=== PATIENT | female | born 2000 | race Caucasian/White ===

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

== ENCOUNTER 2018-10-09 11:29 | Inpatient (IN) | payer OTHER ==
[2018-10-09 12:17] LABS: ABS Basophils 0.1 10^3/ul (0-0.2); ABS Eosinophils 0.2 10^3/ul (0-0.6); ABS Lymphocytes 2.4 10^3/ul (1.0-4.8); ABS Monocytes 0.5 10^3/ul (0-0.8); ABS Neutrophils 3.5 10^3/ul (1.5-7.7); Eosinophil % 2.8 %; Hematocrit 39 % (35-47); Hemoglobin 12.9 g/dL (12.0-16.0); Lymphocyte % 36.1 %; Mean Corpuscular HGB Conc 33 g/dL (31-36); Mean Corpuscular Hemoglobin 29 pg (27-31); Mean Corpuscular Volume 87 fL (80-97); Mean Platelet Volume 6.9 fL (7.4-10.4); Nucleated Red Blood Cells % 0.1; Platelet Count 324 10^3/uL (150-450); Red Cell Distribution Width 13 % (10.5-15); White Blood Count 6.7 10^3/uL (3.5-10.8)
[2018-10-09 12:48] LABS: ALT 26 U/L (7-52); AST 24 U/L (13-39); Albumin 4.4 g/dL (3.2-5.2); Alkaline Phosphatase 78 U/L (34-104); Anion Gap 6 mmol/L (2-11); BUN/Creatinine Ratio 15.6 (8-20); Blood Urea Nitrogen 12 mg/dL (6-24); CO2 Carbon Dioxide 29 mmol/L (22-32); Calcium 9.6 mg/dL (8.6-10.3); Chloride 105 mmol/L (101-111); EGFR African American 115.6 (>60); EGFR Non-African American 95.6 (>60); Glucose 97 mg/dL (70-100); Potassium 4.1 mmol/L (3.5-5.0); Sodium 140 mmol/L (135-145)
[2018-10-09 13:03] LABS: Urine Appearance Clear; Urine Bacteria 1+ (Absent); Urine Bilirubin Negative (Negative); Urine Blood 1+ (Negative); Urine Color Yellow; Urine Glucose Negative (Negative); Urine Ketones Negative (Negative); Urine Nitrite Negative (Negative); Urine Protein Negative (Negative); Urine Red Blood Cell Trace(0-2/hpf) (Absent); Urine Specific Gravity 1.008 (1.010-1.030); Urine Squamous Epithelial Cell Present (Absent); Urine Urobilinogen Negative (Negative); Urine White Blood Cell Trace(0-5/hpf) (Absent)
[2018-10-09 13:21] LABS: Acetaminophen < 15 mcg/mL; Alcohol < 10 mg/dL (<10); Salicylate < 2.50 mg/dL (<30)
[2018-10-09 13:34] LABS: TSH (Thyroid Stimulating Horm) 1.67 mcIU/mL (0.34-5.60)
[2018-10-09 13:38] LABS: Urine Benzodiazepine Screen None Detected (None Detect); Urine Opiates Screen None Detected (None Detect)
[2018-10-09 13:56] LABS: Albumin/Globulin Ratio 1.5 (1-3); Total Protein 7.4 g/dL (6.4-8.9)
--- NOTE | 2018-10-09 14:25 | ED ---
Psychiatric Complaint - HPI Summary HPI Summary: Patient is a 18-year-old female presenting to the ED from her doctor's office. She states she tried to commit suicide, stating "but not really" on Friday evening. She states she took a few more doses of her medications than she typically does. She has no plans to commit suicide at this time. She denies any SI or HI. She states she is unsure why she is here. She denies any complaints. States she is otherwise at her baseline. Denies any recent worsening depression or anxiety. Denies any physical symptoms. - History Of Current Complaint Chief Complaint: EDMentalHealth Time Seen by Provider: 10/09/18 11:34 Hx Obtained From: Patient ?: No Onset/Duration: Sudden Onset Timing: Constant Severity Initially: Mild Severity Currently: Mild Character: Depressed Aggravating Factor(s): Nothing Alleviating Factor(s): Nothing Associated Signs And Symptoms: Positive: Negative Has Suicidal: Reports: Thoughts, Demonstrates Gesture - ingesting more pills than usual per patient - Risk Factor(s) Completed Suicide Risk Factors: Negative - Allergies/Home Medications Allergies/Adverse Reactions: Allergies Allergy/AdvReac Type Severity Reaction Status Date / Time No Known Allergies Allergy Verified 10/09/18 19:42 Home Medications: Home Medications Levonorgestrel (Iud) [Mirena IUD] 20 mcg IU ONCE 10/09/18 [History Confirmed 08/25] hydrOXYzine HCl [Hydroxyzine HCl] 10 mg PO BID PRN 10/09/18 [History Confirmed 10/09/18] PMH/Surg Hx/FS Hx/Imm Hx Previously Healthy: Yes Psychiatric History: Reports: Hx Eating Disorder - Anorexia - Immunization History Hx Pertussis Vaccination: No Immunizations Up to Date: Yes Infectious Disease History: No Infectious Disease History: Denies: Traveled Outside the [place] in Last 30 Days - Social History Occupation: Employed Full-time Lives: With Family Alcohol Use: Occasionally Hx Substance Use: Yes Substance Use Type: Reports: Marijuana Smoking Status (MU): Never Smoked Tobacco Review of Systems Negative: Fever, Chills, Fatigue, Skin Diaphoresis Negative: Palpitations, Chest Pain Negative: Shortness Of Breath, Cough Genitourinary: Negative Positive: no symptoms reported, see HPI Negative: Bruising Positive: Depressed All Other Systems Reviewed And Are Negative: Yes Physical Exam Triage Information Reviewed: Yes Vital Signs On Initial Exam: Initial Vitals Temp Pulse Resp BP Pulse Ox 98.7 F 81 16 121/71 98 10/09/18 11:46 10/09/18 11:46 10/09/18 11:46 10/09/18 11:46 10/09/18 11:46 Vital Signs Reviewed: Yes Appearance: Positive: Well-Appearing, Well-Nourished Skin: Positive: Warm, Skin Color Reflects Adequate Perfusion Head/Face: Positive: Normal Head/Face Inspection Eyes: Positive: EOMI, Conjunctiva Clear Neck: Positive: No Lymphadenopathy Respiratory/Lung Sounds: Positive: Clear to Auscultation, Breath Sounds Present Cardiovascular: Positive: RRR, Pulses are Symmetrical in both Upper and Lower Extremities Musculoskeletal: Positive: Normal, Strength/ROM Intact Neurological: Positive: Speech Normal Psychiatric: Positive: Normal, Affect/Mood Appropriate AVPU Assessment: Alert Diagnostics - Vital Signs Vital Signs Temp Pulse Resp BP Pulse Ox 10/09/18 11:46 98.7 F 81 16 121/71 98 - Laboratory Lab Results: Lab Results 10/09/18 10/09/18 10/09/18 Range/Units 12:00 12:00 12:08 WBC 6.7 (3.5-10.8) 10^3/uL RBC 4.50 (3.70-4.87) 10^6 /uL Hgb 12.9 (12.0-16.0) g/dL Hct 39 (35-47) % MCV 87 (80-97) fL MCH 29 (27-31) pg MCHC 33 (31-36) g/dL RDW 13 (10.5-15) % Plt Count 324 (150-450) 10^3/uL MPV 6.9 L (7.4-10.4) fL Neut % (Auto) 52.6 % Lymph % (Auto) 36.1 % [place] % (Auto) 7.7 % Eos % (Auto) 2.8 % Baso % (Auto) 0.8 % Absolute Neuts (auto) 3.5 (1.5-7.7) 10^3/ul Absolute Lymphs (auto) 2.4 (1.0-4.8) 10^3/ul Absolute Monos (auto) 0.5 (0-0.8) 10^3/ul Absolute Eos (auto) 0.2 (0-0.6) 10^3/ul Absolute Basos (auto) 0.1 (0-0.2) 10^3/ul Absolute Nucleated RBC 0.0 10^3/ul Nucleated RBC % 0.1 Sodium (135-145) mmol/L Potassium (3.5-5.0) mmol/L Chloride (101-111) mmol/L Carbon Dioxide (22-32) mmol/L Anion Gap (2-11) mmol/L BUN (6-24) mg/dL Creatinine (0.51-0.95) mg/dL Est GFR ( Amer) (>60) Est GFR (Non-Af Amer) (>60) BUN/Creatinine Ratio (8-20) Glucose (70-100) mg/dL Calcium (8.6-10.3) mg/dL Total Bilirubin (0.2-1.0) mg/dL AST (13-39) U/L ALT (7-52) U/L Alkaline Phosphatase (34-104) U/L Total Protein (6.4-8.9) g/dL Albumin (3.2-5.2) g/dL Globulin (2-4) g/dL Albumin/Globulin Ratio (1-3) TSH (0.34-5.60) mcIU/mL Urine Color Yellow Urine Appearance Clear Urine pH 6.0 (5-9) Ur Specific [place] 1.008 L (1.010-1.030) Urine Protein Negative (Negative) Urine Ketones Negative (Negative) Urine Blood 1+ A (Negative) Urine Nitrate Negative (Negative) Urine Bilirubin Negative (Negative) Urine Urobilinogen Negative (Negative) Ur Leukocyte Esterase Negative (Negative) Urine WBC (Auto) Trace(0-5/hpf) (Absent) Urine RBC (Auto) Trace(0-2/hpf) (Absent) Ur Squamous Epith Cells Present A (Absent) Urine Bacteria 1+ A (Absent) Urine Glucose Negative (Negative) Salicylates (<30) mg/dL Urine Opiates Screen None detected (None Detect) Acetaminophen mcg/mL Ur Barbiturates Screen None detected (None Detect) Ur Phencyclidine Scrn None detected (None Detect) Ur Amphetamines Screen None detected (None Detect) U Benzodiazepines Scrn None detected (None Detect) Urine Cocaine Screen None detected (None Detect) U Cannabinoids Screen None detected (None Detect) Serum Alcohol (<10) mg/dL 10/09/18 Range/Units 12:08 WBC (3.5-10.8) 10^3/uL RBC (3.70-4.87) 10^6 /uL Hgb (12.0-16.0) g/dL Hct (35-47) % MCV (80-97) fL MCH (27-31) pg MCHC (31-36) g/dL RDW (10.5-15) % Plt Count (150-450) 10^3/uL MPV (7.4-10.4) fL Neut % (Auto) % Lymph % (Auto) % [place] % (Auto) % Eos % (Auto) % Baso % (Auto) % Absolute Neuts (auto) (1.5-7.7) 10^3/ul Absolute Lymphs (auto) (1.0-4.8) 10^3/ul Absolute Monos (auto) (0-0.8) 10^3/ul Absolute Eos (auto) (0-0.6) 10^3/ul Absolute Basos (auto) (0-0.2) 10^3/ul Absolute Nucleated RBC 10^3/ul Nucleated RBC % Sodium 140 (135-145) mmol/L Potassium 4.1 (3.5-5.0) mmol/L Chloride 105 (101-111) mmol/L Carbon Dioxide 29 (22-32) mmol/L Anion Gap 6 (2-11) mmol/L BUN 12 (6-24) mg/dL Creatinine 0.77 (0.51-0.95) mg/dL Est GFR ( Amer) 115.6 (>60) Est GFR (Non-Af Amer) 95.6 (>60) BUN/Creatinine Ratio 15.6 (8-20) Glucose 97 (70-100) mg/dL Calcium 9.6 (8.6-10.3) mg/dL Total Bilirubin 0.40 (0.2-1.0) mg/dL AST 24 (13-39) U/L ALT 26 (7-52) U/L Alkaline Phosphatase 78 (34-104) U/L Total Protein 7.4 (6.4-8.9) g/dL Albumin 4.4 (3.2-5.2) g/dL Globulin 3.0 (2-4) g/dL Albumin/Globulin Ratio 1.5 (1-3) TSH 1.67 (0.34-5.60) mcIU/mL Urine Color Urine Appearance Urine pH (5-9) Ur Specific [place] (1.010-1.030) Urine Protein (Negative) Urine Ketones (Negative) Urine Blood (Negative) Urine Nitrate (Negative) Urine Bilirubin (Negative) Urine Urobilinogen (Negative) Ur Leukocyte Esterase (Negative) Urine WBC (Auto) (Absent) Urine RBC (Auto) (Absent) Ur Squamous Epith Cells (Absent) Urine Bacteria (Absent) Urine Glucose (Negative) Salicylates < 2.50 (<30) mg/dL Urine Opiates Screen (None Detect) Acetaminophen < 15 mcg/mL Ur Barbiturates Screen (None Detect) Ur Phencyclidine Scrn (None Detect) Ur Amphetamines Screen (None Detect) U Benzodiazepines Scrn (None Detect) Urine Cocaine Screen (None Detect) U Cannabinoids Screen (None Detect) Serum Alcohol < 10 (<10) mg/dL Result Diagrams: 10/09/18 12:08 10/09/18 12:08 Lab Statement: Any lab studies that have been ordered have been reviewed, and results considered in the medical decision making process. Course/Dx - Course Course Of Treatment: During his course of treatment, the patient is evaluated for SI and attempt x a few days ago. Patient is cleared from the ED and denies any physical symptoms. VS stable. Mental health evaluation and patient will be admitted to [facility] for further evaluation of suicidal attempt. - Differential Dx/Clinical Impression Differential Diagnosis/HQI/PQRI: Positive: Suicide Attempt, Suicidal Ideation, Suicidal Gesture Provider Diagnosis: Suicide attempt Discharge - Sign-Out/Discharge Documenting (check all that apply): Patient Departure All imaging exams completed and their final reports reviewed: No Patient Received Moderate/Deep Sedation with Procedure: No - Discharge Plan Condition: Improved Disposition: ADMITTED TO [facility] - Billing Disposition and Condition Condition: IMPROVED Disposition: Admitted to [facility]
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
[2018-10-09] MEDS ORDERED: Al Hydrox/Mg Hydrox/Simet LIQ* 30 ML UDC PO PRN (16:34)
[2018-10-09] MEDS ORDERED: Sertraline* 100 MG TAB PO SCH (21:00)
[2018-10-09] MEDS ORDERED: Sertraline* 50 MG TAB PO SCH (21:00)
[2018-10-10] MEDS ORDERED: Sertraline* 100 MG TAB PO SCH (10:00)
[2018-10-10] MEDS ORDERED: Sertraline* 50 MG TAB PO ONE (15:30)
[2018-10-10] MEDS: Acetaminophen TAB* 325 MG PO PRN (21:34)
[2018-10-11] MEDS: Sertraline* 100 MG TAB PO SCH (09:24)
[2018-10-11] MEDS: Acetaminophen TAB* 325 MG PO PRN ×2 (15:03→20:27)
--- NOTE | 2018-10-11 17:14 | PN ---
Subjective - Subjective Date of Service: 10/10/18 Service Type: 31166 Hosp care 25 min moderate complexity Subjective: Saw Silvana multiple times on 4th and today. She is focused on discharge. Says she is not suicidal any longer. Ambivalent about increase is Zoloft. Reduced in morning and later increased. She thinks increase in dose caused suicidal thoughts and increase in depression. Isolative and guarded but no evidence of hallucinations or sugey delusions. Objective - General Observations Appearance: Well Groomed Stature: Overweight Posture: WNL Eye Contact: Average Behavior/Activity: WNL - Interaction Observations Attitude Towards Examiner: Cooperative Stated Mood: Euthymic Affect: Bright Speech Pattern/Tone: Clear, Appropriate, Normal Volume Thought Process: Coherent Perception: WNL Thought Content: WNL Hallucination Type: None Delusion Type: None - Cognitive Function Orientation: A&O x 4 Level of Consciousness: Awake, Alert, Appropriate Cognition: WNL Estimated Intelligence: Normal Insight: Mostly Blames Others for Problems Judgment Within Normal Limits: No Ability to Make Reasonable Decisions: Serverely Impaired - Medication Compliance Cooperative with Inpatient Medication Regimen: Yes - Group Participation Participates in Group Activities: No Assessment - Assessment Merits Inpatient Hospitalization: For Immediate Safety, For Stabilization, Pending Safe DC Plan Plan - Plan Treatment Plan: Name: KARRI LORENZ Birthdate: 2000 [id number] Continued Medication Management: Continue Outpt Medication Medications: Current Medications Acetaminophen (Tylenol Tab*) 650 mg PO Q4H PRN PRN Reason: for pain; or Temp >101 F Last Admin: 10/11/18 15:03 Dose: 650 mg Al Hydrox/Mg Hydrox/Simethicone (Maalox Plus*) 30 ml PO Q4H PRN PRN Reason: INDIGESTION Sertraline HCl (Zoloft*) 200 mg PO DAILY [facility] Last Admin: 10/11/18 09:24 Dose: 200 mg - Discharge Plan Discharge Plan: Outpatient Follow Up Outpatient Program: Private Clinician(s)
[2018-10-12] MEDS: Acetaminophen TAB* 325 MG PO PRN (04:53)
[2018-10-12 07:02] LABS: HDL Cholesterol 76.6 mg/dL
[2018-10-12] MEDS: Sertraline* 100 MG TAB PO SCH (08:49)
[2018-10-12 09:53] VITALS: BP 129/76
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
== END 2018-10-12 15:52 | disposition home or self-care (01) | DRG 751 ==
LOC: ED 11:29 → BSU 17:47
PROVIDERS: ADMIT Psychiatry & Neurology Psychiatry; ATTEND Psychiatry & Neurology Psychiatry
DX: F33.3 Major depressive disorder, recurrent, severe with psychotic symptoms (principal); F50.00 Anorexia nervosa, unspecified; R45.851 Suicidal ideations; F63.2 Kleptomania; F41.9 Anxiety disorder, unspecified; F63.9 Impulse disorder, unspecified; Z91.410 Personal history of adult physical and sexual abuse; Z72.89 Other problems related to lifestyle; Z68.32 Body mass index [BMI] 32.0-32.9, adult; Z91.5 Personal history of self-harm; Z91.14 Patient's other noncompliance with medication regimen; Z97.5 Presence of (intrauterine) contraceptive device
CPT/HCPCS: 36415; 80053; 80061; 80307; 80320; 80329; 81003; 81015; 83036; 84443; 85025; 87086; 99222; 99232; 99238; 99285; A9270-GY; G0480

== ENCOUNTER 2019-02-21 15:20 | Emergency (ER) | payer BC, OTHER ==
[2019-02-21] MEDS ORDERED: Albuterol/Ipratropium NEB.SOL* Albuterol 2.5 MG/Ipratropium 0.5 MG 3 ML INH ONE (16:33)
--- NOTE | 2019-02-21 16:35 | UC ---
Respiratory Complaint HPI - HPI Summary HPI Summary: Patient is a 18 yo female presenting with cough and wheezing x3 days. Patient notes cough and nasal discharge that began on . By Friday, she said her symptoms were worse and she began wheezing and had difficulty breathing. Patient said today her wheezing worsened further and she used her albuterol inhaler approx. 7 times before coming in today. Patient has also taken over the counter cough and cold medications with little relief of symptoms. Denies headache, vision changes, ear pain, and sore throat. Denies any ill contacts. Denies nausea. Notes post-tussive emesis once yesterday. Denies changes in urination or BMs. Denies fever and chills. Denies environmental allergies. Patient states she was diagnosed years ago with reactive airway disease. - History of Current Complaint Chief Complaint: UCGeneralIllness Stated Complaint: COUGH Time Seen by Provider: 02/21/19 16:31 Hx Obtained From: Patient Hx Last Menstrual Period: has mirena IUD - doesn't get period Onset/Duration: Sudden Onset, Lasting Days Timing: Constant Pain Intensity: 0 Character: Cough: Productive - intermittently Aggravating Factors: Deep Breaths, Recumbent Position Alleviating Factors: Upright Position Associated Signs And Symptoms: Positive: Dyspnea, Wheezing, URI, Nasal Congestion. Negative: Fever, Pleuritic Chest Pain, Hemoptysis, Dizziness - Allergies/Home Medications Allergies/Adverse Reactions: Allergies Allergy/AdvReac Type Severity Reaction Status Date / Time No Known Allergies Allergy Verified 02/21/19 16:29 Home Medications: Home Medications Albuterol HFA INHALER* [Ventolin HFA Inhaler*] 2 puff INH Q4H PRN 02/21/19 [ History Confirmed 02/21/19] Escitalopram * [Lexapro 5 mg (NF)] 5 mg PO DAILY 02/21/19 [History Confirmed ] Venlafaxine HCl [Effexor XR-] 37.5 mg PO DAILY 02/21/19 [History Confirmed 02/21] PMH/Surg Hx/FS Hx/Imm Hx - Surgical History Surgical History: Yes Surgery Procedure, Year, and Place: wisdom teeth - Family History Known Family History: Positive: Unknown - Social History Alcohol Use: Weekly Substance Use Type: Marijuana Smoking Status (MU): Current Some Day Smoker - Immunization History Most Recent Influenza Vaccination: unknown Most Recent Pneumonia Vaccination: none Review of Systems All Other Systems Reviewed And Are Negative: Yes Constitutional: Positive: Fatigue. Negative: Fever, Chills Eyes: Positive: Negative. Negative: Blurred Vision, Diplopia, Drainage, Eye Redness ENT: Positive: Nasal Discharge, Sinus Congestion. Negative: Sore Throat, Ear Ache, Sinus Pain/Tenderness Respiratory: Positive: Shortness Of Breath - intermittently, Cough, Other - notes wheezing Cardiovascular: Positive: Other - notes chest tightness. Negative: Palpitations , Chest Pain Genitourinary: Positive: Negative Motor: Positive: Negative Neurovascular: Positive: Negative Musculoskeletal: Positive: Negative. Negative: Myalgia Neurological: Negative: Headache Psychological: Positive: Negative Physical Exam Triage Information Reviewed: Yes Appearance: No Pain Distress, Well-Nourished Vital Signs: Initial Vital Signs Temp 97.9 F 02/21/19 16:26 Pulse 110 02/21/19 16:26 Resp 24 02/21/19 16:26 BP 132/77 02/21/19 16:26 Pulse Ox 98 02/21/19 16:26 Vital Signs Reviewed: Yes Eyes: Positive: Conjunctiva Clear. Negative: Discharge ENT: Positive: Hearing grossly normal, Pharyngeal erythema, Nasal drainage, TMs normal, Uvula midline. Negative: Nasal congestion, TM bulging, TM dull, TM red , Tonsillar swelling, Tonsillar exudate, Hoarse voice, Sinus tenderness Neck exam: Normal Neck: Positive: Supple, Nontender, No Lymphadenopathy Respiratory: Positive: No respiratory distress, No accessory muscle use, Wheezing - diffuse wheezing noted bliaterally. Negative: Stridor Cardiovascular: Positive: Pulses Normal, Tachycardia Abdominal Exam: Normal Neurological: Positive: Alert Psychological: Positive: Age Appropriate Behavior Respiratory Course/Dx - Course Course Of Treatment: Discussed patient with Dr. Valle. Patient received duoneb treatment followed by albuterol neb treatment. Also given one time dose of prednisone and ibuprofen. Patient noted improved symptoms. Patient prescribed prednisone for relief of symptoms. Patient told she may continue to take her albuterol inhaler at home as needed. Patient may also continue to take ibuprofen and over the counter cough and cold medications as needed for upper respiratory symptoms. Patient instructed to follow up within the next week with the [facility] or the referred injection press operator for further evaluation. She was instructed to return or go to the emergency room if she experiences worsening symptoms. - Differential Dx/Diagnosis Provider Diagnosis: Upper respiratory infection, Wheezing on both sides of chest Discharge ED - Sign-Out/Discharge Documenting (check all that apply): Patient Departure All imaging exams completed and their final reports reviewed: No - Discharge Plan Condition: Stable Disposition: HOME Prescriptions: predniSONE TAB* [Deltasone 20 MG TAB*] 40 mg PO DAILY #8 tab Patient Education Materials: Reactive Airways Disease (ED), Wheezing (ED) Referrals: [facility] [Outside] - 7 Days Clover Araya MD [Medical Doctor] - Additional Instructions: Take the prednisone exactly as prescribed for treatment of your cough and wheezing. You may continue to take your albuterol inhaler as needed. You may also continue to take ibuprofen and over the counter cough and cold medications as needed for upper respiratory symptoms. Follow up within the next week with the [facility] or the referred injection press operator as listed below for further evaluation. Return or go to the emergency room if you experience worsening symptoms. - Billing Disposition and Condition Condition: STABLE Disposition: Home
[2019-02-21] MEDS ORDERED: predniSONE TAB* 20 MG PO ONE (17:15)
[2019-02-21] MEDS ORDERED: Albuterol 2.5 MG/3 ML NEB.SOL* (0.083%) INH ONE (17:15)
[2019-02-21] MEDS ORDERED: Ibuprofen TAB* 600 MG PO ONE (17:21)
[2019-02-21 18:49] VITALS: BP 127/60
--- NOTE | 2019-02-22 08:27 | UC ---
- Progress Note Progress Note: Reviewed radiology report. Per Dr. Koehler, no acute cardiopulmonary disease on xray. No change in plan. Course/Dx - Diagnoses Provider Diagnoses: Upper respiratory infection, Wheezing on both sides of chest Discharge ED - Sign-Out/Discharge Documenting (check all that apply): Patient Departure All imaging exams completed and their final reports reviewed: Yes - Discharge Plan Condition: Stable Disposition: HOME Prescriptions: predniSONE TAB* [Deltasone 20 MG TAB*] 40 mg PO DAILY #8 tab Patient Education Materials: Reactive Airways Disease (ED), Wheezing (ED) Referrals: [facility] [Outside] - 7 Days Clover Araya MD [Medical Doctor] - Additional Instructions: Take the prednisone exactly as prescribed for treatment of your cough and wheezing. You may continue to take your albuterol inhaler as needed. You may also continue to take ibuprofen and over the counter cough and cold medications as needed for upper respiratory symptoms. Follow up within the next week with the [facility] or the referred clay molder as listed below for further evaluation. Return or go to the emergency room if you experience worsening symptoms. - Billing Disposition and Condition Condition: STABLE Disposition: Home
== END 2019-02-21 18:45 | disposition home or self-care (01) ==
LOC: UCEAST 15:20
DX: J06.9 Acute upper respiratory infection, unspecified (principal); F17.210 Nicotine dependence, cigarettes, uncomplicated
CPT/HCPCS: 71046; 99213; A9270-GY; G0463; J7512

== ENCOUNTER 2019-04-20 19:46 | Emergency (ER) | payer BC ==
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
[2019-04-20] MEDS ORDERED: Acetaminophen TAB* 325 MG PO ONE (23:19)
[2019-04-21 00:42] LABS: ABS Basophils 0.1 10^3/ul (0-0.2); ABS Eosinophils 0.5 10^3/ul (0-0.6); ABS Lymphocytes 2.9 10^3/ul (1.0-4.8); ABS Monocytes 0.6 10^3/ul (0-0.8); ABS Neutrophils 3.4 10^3/ul (1.5-7.7); Eosinophil % 6.3 %; Hematocrit 42 % (35-47); Hemoglobin 13.9 g/dL (12.0-16.0); Lymphocyte % 38.6 %; Mean Corpuscular HGB Conc 33 g/dL (31-36); Mean Corpuscular Hemoglobin 27 pg (27-31); Mean Corpuscular Volume 82 fL (80-97); Nucleated Red Blood Cells % 0.1; Platelet Count 365 10^3/uL (150-450); Red Blood Count 5.18 10^6 /uL (3.70-4.87); Red Cell Distribution Width 17 % (10-15); White Blood Count 7.6 10^3/uL (3.5-10.8)
[2019-04-21 00:49] LABS: INR 0.95 (0.82-1.09)
[2019-04-21 00:59] LABS: ALT 15 U/L (7-52); AST 18 U/L (13-39); Albumin 4.3 g/dL (3.2-5.2); Albumin/Globulin Ratio 1.3 (1-3); Alkaline Phosphatase 90 U/L (34-104); Anion Gap 4 mmol/L (2-11); BUN/Creatinine Ratio 11.5 (8-20); Blood Urea Nitrogen 9 mg/dL (6-24); CO2 Carbon Dioxide 30 mmol/L (22-32); Calcium 9.8 mg/dL (8.6-10.3); Chloride 101 mmol/L (101-111); EGFR African American 113.9 (>60); EGFR Non-African American 94.2 (>60); Globulin 3.3 g/dL (2-4); Glucose 88 mg/dL (70-100); Potassium 4.2 mmol/L (3.5-5.0); Sodium 135 mmol/L (135-145); Total Protein 7.6 g/dL (6.4-8.9)
[2019-04-21 01:01] LABS: Urine Appearance Clear; Urine Bilirubin Negative (Negative); Urine Blood Negative (Negative); Urine Color Yellow; Urine Glucose Negative (Negative); Urine Ketones Negative (Negative); Urine Nitrite Negative (Negative); Urine Protein Negative (Negative); Urine Specific Gravity 1.011 (1.010-1.030); Urine Urobilinogen Negative (Negative)
[2019-04-21 01:06] LABS: HCG Pregnancy < 0.60 mIU/mL
[2019-04-21 01:08] LABS: Alcohol < 10 mg/dL (<10)
[2019-04-21 01:10] VITALS: BP 146/88
[2019-04-21 01:19] LABS: Urine Benzodiazepine Screen None Detected (None Detect); Urine Opiates Screen None Detected (None Detect)
== END 2019-04-21 01:12 | disposition home or self-care (01) ==
LOC: ED 19:46
DX: S06.0X9A Concussion with loss of consciousness of unspecified duration, initial encounter (principal); R51 Headache; R42 Dizziness and giddiness; Z72.0 Tobacco use; V49.88XA Car occupant (driver) (passenger) injured in other specified transport accidents, initial encounter; Y92.488 Other paved roadways as the place of occurrence of the external cause; Z79.899 Other long term (current) drug therapy
CPT/HCPCS: 36415; 70450; 80053; 80307; 80320; 81003; 83605; 84702; 85025; 85610; 87040; 99283; A9270-GY; G0480